=== PATIENT | female | born 1995 | race Caucasian/White ===

== ENCOUNTER 2019-02-04 10:58 | Emergency (ER) | payer MEDICAID ==
[~2019-02-04] VITALS: Ht 162.6 cm; Wt 79.4 kg
[2019-02-04 11:04] VITALS: BP_SYST 145
--- NOTE | 2019-02-04 11:10 | NUR ---
Patient to ER bed [] to gown for evaluation. Side rails up. Report given to [].
--- NOTE | 2019-02-04 11:30 | NUR ---
Patient presented to ER with C/o burn to right eye. Patient A&Ox4, skin pink, respirations equal bilat, pain 10/10, denies N/V/D. Patient states she was using electric curling iron this morning when she accidentally burned right eye. Patient went to prior to ER today.
--- NOTE | 2019-02-04 11:42 | NUR ---
ER Dr. Talavera at bedside examining patient.
[2019-02-04 12:30] VITALS: BP_SYST 142
--- NOTE | 2019-02-04 12:30 | NUR ---
Patient given written and verbal discharge instructions and verbalizes understanding. ER MD discussed with patient the results and treatment provided. Patient in stable condition. ID arm band removed. Rx of [place], motrin, Erythromycin given. Patient educated on pain management and to follow up with PMD. Pain Scale 2/10 tolerable for pt.. Opportunity for questions provided and answered. Medication side effect fact sheet provided.
== END 2019-02-04 12:30 | disposition home or self-care (01) ==
LOC: SED 10:58
DX: T26.11XA Burn of cornea and conjunctival sac, right eye, initial encounter (principal); Z88.0 Allergy status to penicillin; X16.XXXA Contact with hot heating appliances, radiators and pipes, initial encounter; Y93.89 Activity, other specified; Y92.89 Other specified places as the place of occurrence of the external cause; Y99.8 Other external cause status
CPT/HCPCS: 99283